=== PATIENT | male | born 1985 | race African-American/Black ===

== ENCOUNTER 2021-10-01 13:43 | Emergency (ER) | payer OTHER ==
[2021-10-01 14:01] VITALS: BP 110/62; PULSE 77; TEMP 97.8; BMI 20.5
[2021-10-01 16:26] LABS: ARTERIAL BLOOD GAS BASE EXCESS -1.2 mmol/L (-2-2); ARTERIAL BLOOD GAS PO2 158.9 mmHg (80-100); ARTERIAL BLOOD GAS pH 7.401 (7.350-7.450)
[2021-10-01 16:43] LABS: ALLENS TEST POSITIVE
== END 2021-10-01 17:42 | disposition home or self-care (01) ==
LOC: JERFT 13:43
DX: T59.811A Toxic effect of smoke, accidental (unintentional), initial encounter (principal); X00.0XXA Exposure to flames in uncontrolled fire in building or structure, initial encounter; Y92.9 Unspecified place or not applicable
CPT/HCPCS: 36600; 82375; 82803; 93005; 93010; 99283-25

== ENCOUNTER 2024-05-28 22:35 | Emergency (ER) | payer OTHER ==
[2024-05-28 22:41] VITALS: TEMP 98.6
[2024-05-28] MEDS ORDERED: morphine SULFATE 4 MG/ML VIAL ONE (22:59)
[2024-05-28] MEDS: morphine CARPU-JECT 4 MG/1 ML DISP.SYRIN IVPUSH ONE (23:15)
[2024-05-28] MEDS: morphine CARPU-JECT 2 MG/1 ML DISP.SYRIN IM ONE (23:15)
[2024-05-28] MEDS ORDERED: DIPHTH,PERTUSS(ACELL),TET 0.5 ML DISP.SYRIN IM ONE ×2 (23:17→23:30)
[2024-05-28] MEDS: TETANUS AND DIPHTHERIA TOXOID 0.5 ML DISP.SYRIN IM ONE (23:29)
[2024-05-29] MEDS ORDERED: AMPICILLIN NA/SULBACTAM NA 3 GM/100 ML BAG IVPB ONE (01:12)
[2024-05-29] MEDS: AMPICILLIN NA/SULBACTAM NA 3 GM in SODIUM CHLORIDE 100 ML IVPB ONE (01:18)
[2024-05-29 02:03] LABS: BASO % 0.3 % (0-2.0); EOS % 0.2 % (0-4.5); HEMATOCRIT 37.2 % (35.4-49); HEMOGLOBIN 12.9 GM/dL (11.7-16.9); LYMPH % 10.7 % (8-40); MCHC 34.7 g/dl (32.0-35.9); MEAN CELL VOLUME 86.4 fl (80-96); MONO % 8.9 % (3.8-10.2); NEUT % 79.9 % (42.8-82.8); PLATELET COUNT 186 10^3/uL (134-434); RDW 14.9 % (11.9-15.9); WHITE BLOOD COUNT 11.4 K/mm3 (4.0-10.0)
[2024-05-29 02:12] LABS: PROTHROMBIN TIME (PATIENT) 11.3 SEC (9.7-13.0)
[2024-05-29 02:23] LABS: POTASSIUM 4.1 mmol/L (3.5-5.1)
[2024-05-29 02:24] LABS: CALCIUM 8.5 mg/dL (8.5-10.1)
[2024-05-29 02:25] LABS: ALBUMIN 3.7 g/dl (3.4-5.0); BLOOD UREA NITROGEN 13.1 mg/dL (7-18)
[2024-05-29 02:31] LABS: BILIRUBIN,TOTAL 0.5 mg/dL (0.2-1); TOT PROT 6.7 g/dl (6.4-8.2)
[2024-05-29 03:35] VITALS: BP 125/77; PULSE 76; RESP 18
== END 2024-05-29 03:57 | disposition short-term general hospital (02) ==
LOC: JER 22:35
PROC: 3E013NZ Introduction of Analgesics, Hypnotics, Sedatives into Subcutaneous Tissue, Percutaneous Approach (ICD-10-PCS; 2024-05-28)
PROC: 3E0234Z Introduction of Serum, Toxoid and Vaccine into Muscle, Percutaneous Approach (ICD-10-PCS; 2024-05-28)
PROC: 3E03329 Introduction of Other Anti-infective into Peripheral Vein, Percutaneous Approach (ICD-10-PCS; principal; 2024-05-29)
DX: S01.112A Laceration without foreign body of left eyelid and periocular area, initial encounter (principal); S40.212A Abrasion of left shoulder, initial encounter; S20.312A Abrasion of left front wall of thorax, initial encounter; S80.212A Abrasion, left knee, initial encounter; V28.49XA Other motorcycle driver injured in noncollision transport accident in traffic accident, initial encounter; Y92.410 Unspecified street and highway as the place of occurrence of the external cause; Z20.822 Contact with and (suspected) exposure to COVID-19; Z23 Encounter for immunization
CPT/HCPCS: 0241U-QW; 36415; 70450-TC; 70486-TC; 80053; 85025; 85610; 86850; 86900; 86901; 90471; 96365; 96372; 99285-25